=== PATIENT | female | born 1980 | race African-American/Black ===

== ENCOUNTER 2020-11-28 07:22 | Day surgery (SDC) | payer OTHER ==
[2020-11-26 14:12] VITALS: BMI 33.6
[2020-11-28] MEDS ORDERED: BUPIVACAINE HCL/PF 0.25% (2.5MG/ML) 10 ML VIAL ONE (07:43)
[2020-11-28] MEDS ORDERED: TRIAMCINOLONE ACET 40MG/1ML VIAL ONE (07:43)
[2020-11-28] MEDS ORDERED: KETOROLAC TROMETHAMINE 30 MG/1 ML VIAL ONE (08:36)
[2020-11-28] MEDS ORDERED: MIDAZOLAM HCL 2 MG/2 ML SINGLE DOSE VIAL ONE (08:36)
[2020-11-28] MEDS ORDERED: KETAMINE HCL 200 MG/20 ML VIAL ONE (08:37)
[2020-11-28] MEDS ORDERED: ePHEDrine SULFATE 50 MG/1 ML AMPULE ONE (09:17)
[2020-11-28] MEDS ORDERED: GABAPENTIN 300 MG CAPSULE PO PRN (09:56)
[2020-11-28] MEDS ORDERED: MONTELUKAST NA 10 MG TABLET PO SCH (10:00)
[2020-11-28] MEDS ORDERED: FLUTICASONE/SALMETEROL 100 MCG/50 MCG DISKUS IH SCH (10:00)
[2020-11-28] MEDS ORDERED: PATIENT'S OWN MEDICATION (NON-FORMULARY) (Prenatal Vits96/Iron Fum/Folic [Prenatal Tablet] PO SCH (10:00)
[2020-11-28] MEDS ORDERED: METOPROLOL TARTRATE 50 MG TABLET (FP) PO SCH (10:00)
[2020-11-28] MEDS ORDERED: IRON POLYSACCHARIDES 150 MG CAPSULE PO SCH (10:00)
[2020-11-28] MEDS ORDERED: VALSARTAN 80 MG TABLET PO SCH (10:00)
[2020-11-28] MEDS ORDERED: ONDANSETRON 4 MG/2 ML VIAL ONE (10:06)
[2020-11-28] MEDS ORDERED: oxyCODONE HCL 5 MG TABLET PO PRN ×2 (10:36)
[2020-11-28] MEDS ORDERED: oxyCODONE HCL 5 MG TABLET ONE (10:42)
[2020-11-28] MEDS ORDERED: LACTATED RINGERS SOLUTION 1,000 ML IV SCH (10:45)
[2020-11-28 11:41] VITALS: TEMP 97.8
[2020-11-28 11:43] VITALS: BP 121/71; PULSE 69
[2020-11-28] MEDS ORDERED: PATIENT'S OWN MEDICATION (NON-FORMULARY) (Oxycodone Hcl/Acetaminophen [Oxycodone-Acetamino PO SCH (14:00)
[2020-11-28] MEDS ORDERED: VENLAFAXINE HCL 75 MG E.R. CAPSULES PO SCH (22:00)
[2020-11-28] MEDS ORDERED: QUEtiapine FUMARATE 25 MG TABLET PO SCH (22:00)
== END 2020-11-28 11:30 | disposition home or self-care (01) ==
LOC: FASU 07:22
PROVIDERS: ATTEND Orthopaedic Surgery Orthopaedic Surgery of the Spine
PROC: 0SCC4ZZ Extirpation of Matter from Right Knee Joint, Percutaneous Endoscopic Approach (ICD-10-PCS; principal; 2020-11-28 09:23)
DX: M23.41 Loose body in knee, right knee (principal); M23.611 Other spontaneous disruption of anterior cruciate ligament of right knee; M65.9 Synovitis and tenosynovitis, unspecified; M17.11 Unilateral primary osteoarthritis, right knee; M23.311 Other meniscus derangements, anterior horn of medial meniscus, right knee; M25.761 Osteophyte, right knee
CPT/HCPCS: 81025; 94760